=== PATIENT | female | born 1995 | race Caucasian/White ===

== ENCOUNTER 2018-01-03 23:01 | Emergency (ER) | payer OTHER ==
[2018-01-04] MEDS: ACETAMINOPHEN 325 MG TAB PO (01:21)
== END 2018-01-04 01:54 | disposition home or self-care (01) ==
LOC: FTE 23:01
DX: O20.9 Hemorrhage in early pregnancy, unspecified (principal); Z3A.00 Weeks of gestation of pregnancy not specified
CPT/HCPCS: 99283; Z7502